=== PATIENT | female | born 2005 | race Caucasian/White ===

== ENCOUNTER 2025-02-13 09:44 | Emergency (ER) | payer OTHER ==
[2025-02-13 10:43] LABS: #Basophils 0.05 10x3/uL (0.0-0.2); #Eosinophils Less than 0.03 10x3/uL (0.0-0.7); #Monocytes 0.40 10x3/uL (0.11-0.59); #Neutrophils 6.57 10x3/uL (1.40-6.50); %Basophils 0.6 % (0.0-1.0); %Eosinophils 0.2 % (0.0-10.0); %Lymphocytes 16.9 % (21.0-51.0); %Monocytes 4.7 % (0.0-10.0); %Neutrophils 77.4 % (42.0-75.0); Hematocrit 42.4 % (36.0-47.0); Hemoglobin 13.9 g/dL (12.0-16.0); Mean Corpuscular Hemoglobin 29.6 pg (27.0-31.0); Mean Corpuscular Volume 90.4 fL (78.0-98.0); Platelet Count 326 10x3/uL (130-400); Red Blood Cell (RBC) Count 4.69 mill/uL (4.20-5.40); White Blood Cell (WBC) Count 8.50 10x3/uL (4.8-10.8)
[2025-02-13 11:07] LABS: Magnesium 2.2 mg/dL (1.6-2.6)
[2025-02-13 11:09] LABS: ALT (SGPT) 13 U/L (Less than 34); AST (SGOT) 25 U/L (11-34); Albumin 4.8 g/dL (3.1-4.5); Alkaline Phosphatase 47 U/L (40-110); Anion Gap 11 mmol/L (10-20); BUN (Urea Nitrogen) 7 mg/dL (7.0-18.7); Bilirubin, Total 0.4 mg/dL (0.3-1.2); Calc. Creatinine Clearance 0 mL/min (70-130); Calcium 9.2 mg/dL (7.8-10.44); Carbon Dioxide 23 mmol/L (22-29); Chloride 109 mmol/L (98-107); Globulin 2.7 g/dL (2.4-3.5); Glucose 85 mg/dL (70-105); Potassium 3.9 mmol/L (3.5-5.1); Sodium 139 mmol/L (136-145)
[2025-02-13 11:25] LABS: Troponin I Less than 0.010 ng/mL (< 0.028)
== END 2025-02-13 12:10 | disposition home or self-care (01) ==
LOC: EDBD 09:44 → ERS 09:44
DX: R00.2 Palpitations (principal)
CPT/HCPCS: 36415; 71045; 80053; 83735; 84443; 84484; 85025; 85379; 93005